=== PATIENT | male | born 1970 | race Caucasian/White ===

== ENCOUNTER 2019-11-06 11:54 | Outpatient (CLI) | payer OTHER, SELFPAY ==
[2019-11-08 03:15] LABS: COVID-19 RT-PCR Result NEGATIVE (Negative)
== END 2019-11-06 12:14 ==
PROVIDERS: PCP Nurse Practitioner; Visit Provider Nurse Practitioner Family
DX: Z11.59 Encounter for screening for other viral diseases (principal)
CPT/HCPCS: U0003

== ENCOUNTER 2019-12-26 12:53 | Outpatient (REF) | payer OTHER, SELFPAY ==
[2019-12-26 19:30] LABS: Calculated LDL 132 mg/dL (<100); Cholesterol 222 mg/dL (<200); HDL Cholesterol 54 mg/dL (40-60); Triglyceride 182 mg/dL (<150)
[2019-12-26 19:36] LABS: Hemoglobin A1C 5.5 % (<5.7)
[2019-12-28 12:14] LABS: Hepatitis C Ab w Rflx HCV PCR Negative (Negative)
== END 2019-12-26 13:13 ==
LOC: NCHCN 12:53
PROVIDERS: PCP Nurse Practitioner; Visit Provider Family Medicine
DX: Z00.00 Encounter for general adult medical examination without abnormal findings (principal); Z13.1 Encounter for screening for diabetes mellitus; Z13.220 Encounter for screening for lipoid disorders; Z11.59 Encounter for screening for other viral diseases
CPT/HCPCS: 80061; 86803; 83036

== ENCOUNTER 2020-06-26 17:43 | Outpatient (REF) | payer OTHER, SELFPAY ==
[2020-06-26 20:19] LABS: Abs Immature Grans 0.01 10^3/uL (0.0-0.06); Absolute Basophil Count 0.01 10^3/uL (0.0-0.2); Absolute Lymphocyte Count 2.02 10^3/uL (1.2-3.4); Absolute Monocyte Count 0.46 10^3/uL (0.1-0.8); Absolute Neutrophil Count 2.52 10^3/uL (1.2-6.7); Basophils % 0.2; HCT 43.8 % (40.0-50.0); HGB 14.5 g/dL (13.5-17.5); Immature Grans % 0.2; Lymphocytes % 39.5; MCH 29.7 pg (27.0-33.0); MCHC 33.1 % (32.0-36.0); MCV 89.8 fL (80-95); MPV 11.2 fL (8.0-11.0); Neutrophils % 49.1; Nucleated RBC 0 %; Platelet Count 275 10^3/uL (130-400); RBC 4.88 10^6/uL (4.36-5.78); RDW 11.9 % (11.8-14.1); RDW-SD 39.1 fL; WBC 5.12 10^3/uL (4.4-10.8)
[2020-06-26 20:38] LABS: ALT 28 U/L (16-63); AST 28 U/L (15-37); Albumin 4.3 g/dL (3.4-5.0); Alkaline Phosphatase 70 U/L (46-116); Anion Gap 11.5 mmol/L (3-11); BUN 22 mg/dL (7-18); Bilirubin, Total 0.7 mg/dL (0.2-1.0); CO2 27.5 mmol/L (21.0-32.0); Calcium 9.3 mg/dL (8.5-10.1); Chloride 104 mmol/L (98-107); Glucose 104 mg/dL (74-106); Potassium 4.2 mmol/L (3.5-5.1); Sodium 143 mmol/L (136-145); Total Protein 8.5 g/dL (6.4-8.2)
== END 2020-06-26 17:44 | disposition home or self-care (01) ==
LOC: NCHCN 17:43
PROVIDERS: PCP Nurse Practitioner; Visit Provider Family Medicine
DX: R59.1 Generalized enlarged lymph nodes (principal); J84.10 Pulmonary fibrosis, unspecified
CPT/HCPCS: 80053; 85025

== ENCOUNTER 2020-07-31 02:45 | Outpatient (CLI) | payer OTHER, SELFPAY ==
--- NOTE | 2020-07-31 14:44 | DI.RAD_ITS ---
EXAM: XR CHEST 2V PA LATERAL CLINICAL HISTORY: LYMPHADENOPATHY,R59.1. TECHNIQUE: 2D digital imaging was performed. COMPARISON: Chest x-ray February 2016 FINDINGS: Heart size is normal. The mediastinum is not widened. No new infiltrates nor pleural effusions. Calcified granuloma in the right upper lobe is unchanged f 2015. No new pulmonary nodules. IMPRESSION: No acute pulmonary findings.Stable calcified granuloma in the right upper lobe. DATA REPOSITORY: RADIATION DOSE DELIVERED:
== END 2020-07-31 03:05 ==
PROVIDERS: PCP Nurse Practitioner; Visit Provider Family Medicine
DX: R59.1 Generalized enlarged lymph nodes (principal); J98.4 Other disorders of lung
CPT/HCPCS: 71046

== ENCOUNTER 2020-11-24 16:14 | Outpatient (REF) | payer OTHER, SELFPAY ==
[2020-11-25 19:29] LABS: COVID-19 RT-PCR UVMMC Result Negative (Negative)
== END 2020-11-24 16:15 | disposition home or self-care (01) ==
LOC: LBN 16:14
PROVIDERS: PCP Family Medicine; Visit Provider Pediatrics
DX: Z20.822 Contact with and (suspected) exposure to COVID-19 (principal)
CPT/HCPCS: U0003

== ENCOUNTER 2021-01-08 17:29 | Outpatient (REF) | payer OTHER, SELFPAY | END 2021-01-08 17:30 | disposition home or self-care (01) | LOC: LBN 17:29 | PROVIDERS: PCP Family Medicine | DX: Z20.822 Contact with and (suspected) exposure to COVID-19 (principal) | CPT/HCPCS: U0003 ==

== ENCOUNTER 2021-02-24 14:53 | Outpatient (REF) | payer SELFPAY | END 2021-02-24 14:54 | disposition home or self-care (01) | LOC: LBN 14:53 | PROVIDERS: PCP Family Medicine | DX: Z20.822 Contact with and (suspected) exposure to COVID-19 (principal) | CPT/HCPCS: U0003 ==

== ENCOUNTER 2021-12-03 14:58 | Outpatient (REF) | payer OTHER, SELFPAY ==
[2021-12-05 09:47] LABS: Lyme Ab w Rflx to Lyme Confirm Negative (Negative)
[2021-12-07 22:22] LABS: Anaplasma phagocytophilum Negative (Negative); B. miyamotoi PCR Negative (Negative); Babesia divergens/MO-1 Negative (Negative); Babesia duncani Negative (Negative); Babesia microti Negative (Negative); Ehrlichia chaffeensis Negative (Negative); Ehrlichia ewingii/canis Negative (Negative); Ehrlichia muris eauclairensis Negative (Negative)
== END 2021-12-03 14:59 | disposition home or self-care (01) ==
LOC: NCHCN 14:58
PROVIDERS: PCP Family Medicine; Visit Provider Physician Assistant
DX: T14.8XXA Other injury of unspecified body region, initial encounter (principal); W57.XXXA Bitten or stung by nonvenomous insect and other nonvenomous arthropods, initial encounter
CPT/HCPCS: 87798; 86618

== ENCOUNTER 2022-06-03 01:33 | Outpatient (CLI) | payer OTHER, SELFPAY ==
--- NOTE | 2022-06-03 09:41 | DI.RAD_ITS ---
Exam(s) XR CERVICAL SPINE COMP 4-5V EXAM: XR CERVICAL SPINE COMP 4-5V CLINICAL HISTORY: CHRONIC NECK AIN, M54.2. TECHNIQUE: 2D digital imaging was performed. Five images were obtained. COMPARISON: No exams were available for comparison FINDINGS: BONES: No fracture or destructive lesion. Vertebral bodies are unremarkable. DISKS: Intervertebral disc spaces are maintained. ALIGNMENT: Cervical spinal alignment is within normal limits. The odontoid and atlantoaxial articulat ions are normal. SOFT TISSUE: Normal. The lung apices are clear. IMPRESSION: Unremarkable radiographs of the cervical spine. DATA REPOSITORY: RADIATION DOSE DELIVERED:
== END 2022-06-03 01:53 ==
PROVIDERS: PCP Family Medicine; Visit Provider Family Medicine
DX: M54.2 Cervicalgia (principal); G89.29 Other chronic pain
CPT/HCPCS: 72050

== ENCOUNTER 2023-04-27 14:09 | Outpatient (REF) | payer OTHER, SELFPAY ==
[2023-04-27 15:53] LABS: Hemoglobin A1C 5.4 % (<5.7)
[2023-04-27 17:00] LABS: Calculated LDL 115 mg/dL (<100); Cholesterol 209 mg/dL (<200); HDL Cholesterol 62 mg/dL (40-60); Triglyceride 160 mg/dL (<150)
== END 2023-04-27 14:10 | disposition home or self-care (01) ==
LOC: NCHCN 14:09
PROVIDERS: PCP Family Medicine; Visit Provider Family Medicine
DX: Z13.1 Encounter for screening for diabetes mellitus (principal); Z13.6 Encounter for screening for cardiovascular disorders
CPT/HCPCS: 80061; 83036

== ENCOUNTER 2023-06-29 08:33 | Day surgery (SDC) | payer OTHER, SELFPAY ==
[2023-06-29 08:43] VITALS: BP 139/91; PULSE 64; RESP 16; TEMP 36.4; O2SAT 100
[2023-06-29] MEDS: Lactated Ringers 1,000 ML 80 ML IV (09:19)
--- NOTE | 2023-06-29 09:27 | W.ANESPRE ---
General Info Date of Service Date Performed: 06/29/23 Height: 6 ft Weight: 80.7 kg Body Mass Index (BMI): 24.1 Surgical Procedure: Operation Date: 06/29/23 09:50 Proposed Procedure Side Surgeon p Colonoscopy Mayo Britt MD Meds Allergies and Home Medications Allergies Allergy/AdvReac Type Severity Reaction Status Date / Time amoxicillin Allergy Intermediate rash Verified 06/29/23 08:42 Penicillins AdvReac Mild Skin Rash Unverified 06/29/23 08:42 Home Medication Medication Instructions Recorded Unknown [No Known Home Meds] 02/16/16 Current Visit Medications: Current Medications Generic Name Dose Route Start Last Admin Trade Name Freq PRN Reason Stop Dose Admin Ringer's Solution 1,000 mls @ 80 mls/hr 06/29/23 06:00 06/29/23 09:19 IV 06/29/23 23:59 80 mls/hr INFUSION RAMANA Administration IV Miscellaneous Supplies 1 each 06/29/23 06:00 Iv Access IV 06/29/23 23:59 DIRECTED RAMANA Sodium Chloride 0 ml 06/29/23 06:00 Normal Saline Flush 10 Ml Syr IV 06/29/23 23:59 PRN PRN Sodium Chloride 0 ml 06/29/23 06:00 Normal Saline 10 Ml Vial IJ 06/29/23 23:59 DIRECTED PRN Sterile Water 0 ml 06/29/23 06:00 Water,Injection,Sterile 10 Ml Vial IJ 06/29/23 23:59 DIRECTED PRN PFSH Active Problems Active Problems: Problem Status Onset Code Hyperplastic colon polyp ~2018 K63.5 Cervical lymphadenopathy R59.0 Encounter for screening for other viral diseases Z11.59 Medical History Medical History IBS (irritable bowel syndrome) Migraine Eczema Surgical History Surgical History colonoscopy - MAC (10/25/17) Colonoscopy - [facility] 2008, normal, done because father with history of adenomous colon polyps Tobacco Smoking/Tobacco Use Status: Never Alcohol Alcohol Intake: current Alcohol intake frequency: holidays/special occasions only Alcohol type: beer Substance Use Substance use: Never Substance use type: does not use Vital Signs and Lab Results Vital Signs Most Recent Vital Signs in EMR: Most Recent Vital Signs Temp Pulse Resp BP Pulse Ox 36.4 C L 64 16 139/91 H 100 06/29/23 08:43 06/29/23 08:43 06/29/23 08:43 06/29/23 08:43 06/29/23 08:43 Lab Results Blood Type / Crossmatch: No Data to Display Complete Blood Count: No Data to Display Complete Metabolic Panel: No Data to Display Liver Function Panel: No Data to Display Coagulation Panel: No Data to Display Cardiac Panel: No Data to Display Arterial Blood Gas: No Data to Display Venous Blood Gas: No Data to Display Pancreas Panel: No Data to Display Thyroid Panel: No Data to Display Infectious Disease: No Data to Display Blood Cultures: No Data to Display Toxicology Panel: No Data to Display Anesthesia Assessment and Plan Anesthesia History Personal History: No History of Anesthesia Complications Family History: No Family History of Anesthesia Complications Exercise Tolerance Exercise Tolerance: Metabolic Equivalents>4 Pertinent Negatives Pertinent Negatives: No Symptoms of GERD, No Major Cardiovascular Symptoms or Complaints, No Major Pulmonary Symptoms or Complaints and No History of CVA/TIA Cardiac & Pulmonary Exam Cardiac Exam: Normal S1/S2 Heart Sounds Pulmonary Exam: Clear Bilateral Breath Sounds Implantable Cardiac Device Does patient have a Pacemaker or an ICD?: No Airway Exam Known Difficult Airway: No Mallampati Class: 1 Mouth Opening: Normal (> 3cm) Thyromental Distance: Greater than 3 cm Neck Range of Motion: Full ROM Neck Circumference: Normal Teeth Condition: Normal Dentition ASA Classification ASA Score: ASA 2 Emergency Case?: No NPO Status NPO Status: NPO Clears >2 hours, Solids >8 hours Anesthesia Plan Resuscitation Status: Full Code Anesthesia Technique: General Anesthesia Airway Planned: Natural Airway Monitors Used: Standard Monitors
[2023-06-29 09:50] VITALS: BMI 24.1
--- NOTE | 2023-06-29 10:34 | BOWEL_PTH ---
PATIENT: Chu Pedersen LOC: [facility] U#:[id number] AGE/SX: 52/M ROOM: RE06/29/[address]: Mayo Britt : 1970 BED: DIS: 06/29/2023 SPEC #: [id number] RECD: 06/29/23 12:43 STATUS: SULAIMAN REQ #: [id number] PAOLA: 06/29/23 10:[address]: Mayo Britt DEPT: Surgical Specimen RECD BY: Emy Hernandez ENTERED: 06/29/23 12:45 SP TYPE: Bowel OTHR DR: Viraj Campos Tissues: 1 - BIOPSY BOWEL Procedures: GROSS AND MICRO LEVEL 4 Comments: [id number]
[2023-06-29 10:50] VITALS: BP 108/66; PULSE 85; RESP 16; TEMP 36.2; O2SAT 98
--- NOTE | 2023-06-29 10:50 | W.COLOREPORT ---
Date of service: 06/29/23 Time of Service: 10:50 Colonoscopy Report Procedure Description: PROCEDURES PERFORMED: 1. Colonoscopy with cold forceps polypectomy PREOPERATIVE DIAGNOSIS: Surveillance colonoscopy POSTOPERATIVE DIAGNOSIS: Sigmoid colon polyp SURGEON: Ramon Britt MD INDICATION FOR PROCEDURE: the patient is a 52-year-old man with a family history of multiple advanced colorectal polyps in his father as well as his sister. Multiple paternal cousins have had colon cancer. He has no symptoms. FINDINGS: Normal terminal ileum. No diverticular disease. No inflammation anywhere. A small 2-3 mm sessile polyp was removed from the sigmoid colon. Unclear if it is adenomatous or hyperplastic based off of visual appearance. No hemorrhoid disease. SURVEILLANCE interval/FOLLOW-UP: Considering the family history described, I think continuing the 5-year surveillance interval makes sense. SPECIMENS: Yes EBL: Minimal COMPLICATIONS: None QUALITY of prep: Excellent Procedure in detail: The patient gave written consent and was in agreement with the indications, the potential risks as well as the benefits of the procedure. They were taken to the endoscopy suite and laid in the left lateral decubitus position. A timeout was performed and anesthesia was administered which was tolerated well. I started the procedure. Digital rectal and visual examination was performed and grossly within normal limits. A well-lubricated flexible colonoscope was then introduced and passed without any notable difficulty all the way to the cecum identified by the ileocecal valve and the appendiceal orifice. The terminal ileum was intubated and looked normal. The scope was then slowly withdrawn with the above-noted findings. The patient tolerated the procedure well and was taken to the PACU in hemodynamically stable condition.
--- NOTE | 2023-06-29 10:52 | W.PM.DSUDISC ---
Date of service: 06/29/23 Time of Service: 10:52 Discharge Plan Disposition Patient Disposition: Home Condition: Good Discharge Details Attending Provider: Mayo Britt Primary Care Provider: Viraj Campos Home Meds and New Rx's Prescriptions: No Action No Known Home Meds Discharge Instructions Additional Instructions: FINDINGS: A very small polyp was found and removed from your sigmoid colon. This may or may not be the type of polyp that has risk and it will get analyzed. No matter what kind of polyp it ends up being I would recommend repeating a colonoscopy in 5 years like you have been doing because of the extensive family history that you describe. I think current guidelines from most societies would support this recommendation considering your family history. There are no other disease processes seen or uncovered. The last part of your small intestine (terminal ileum) looks completely normal. There is no diverticular disease anywhere. Nowhere in the colon or the rectum was there any inflammation. There was no hemorrhoid disease. Stand Alone Forms: Colonoscopy Post Instructions Activity:: Activity as Tolerated Diet:: As Tolerated
[2023-06-29 11:20] VITALS: BP 127/92; PULSE 60; RESP 16; TEMP 36.3; O2SAT 100
--- NOTE | 2023-06-29 11:39 | W.ANESPOSTOP ---
Postoperative Evaluation Date, Time and Location Date Performed: 06/29/23 Time Performed: 10:52 Patient Location: Day Surgery Unit Vital Signs Most Recent Imported Vital Signs: Most Recent Vital Signs Temp Pulse Resp BP Pulse Ox 36.3 C L 60 16 127/92 H 100 06/29/23 11:20 06/29/23 11:20 06/29/23 11:20 06/29/23 11:20 06/29/23 11:20 Pain Score Most Recent Pain Score: Most Recent Pain Score Pain Level 0 06/29/23 11:20 Assessment Mental Status: Awake (Alert & Oriented to Patient Baseline) Airway and Respiratory Function: Patent airway with normal (patient baseline) respiratory exam Cardiovascular Function: Hemodynamically Stable Hydration Status: Adequately Hydrated Nausea & Vomiting: No Nausea or Vomiting Pain: Pt. Denies Any Pain Peripheral Nerve Block: Patient did not receive a nerve block
== END 2023-06-29 11:30 | disposition home or self-care (01) ==
PROVIDERS: PCP Family Medicine; Visit Provider Student in an Organized Health Care Education/Training Program
PROC: 0DJD8ZZ Inspection of Lower Intestinal Tract, Via Natural or Artificial Opening Endoscopic (ICD-10-PCS; CPT 45378; principal; 2023-06-29 09:45)
DX: Z12.11 Encounter for screening for malignant neoplasm of colon (principal); K63.5 Polyp of colon; Z86.010 Personal history of colon polyps; Z80.0 Family history of malignant neoplasm of digestive organs; K63.89 Other specified diseases of intestine
CPT/HCPCS: 45380; 00123; 88305; J2001; J2704

== ENCOUNTER 2024-03-11 13:47 | Emergency (ER) | payer OTHER, SELFPAY ==
[2024-03-11 13:53] VITALS: BP 163/98; PULSE 73; RESP 16; O2SAT 99
--- NOTE | 2024-03-11 14:00 | DI.RAD_ITS ---
Exam(s) XR ANKLE RT COMPLETE EXAM: XR ANKLE RT COMPLETE CLINICAL HISTORY: lateral ankle pain s/p fall while skiing. TECHNIQUE: 2D digital imaging was performed. Three views. COMPARISON: No exams were available for comparison FINDINGS: BONES: Nondisplaced fracture noted through the tip of the lateral malleolus. Question of additional nondisplaced fracture the the tip of the medial malleolus. The talar dome appears intact. No bony d estructive lesion is seen. Minimal plantar calcaneal spur. Ossicle adjacent to cuboid. JOINTS: The ankle mortise is normally aligned. No significant degenerative changes. SOFT TISSUE: Normal. IMPRESSION: Nondisplaced fractures at the tips of the lateral and medial malleoli. DATA REPOSITORY: RADIATION DOSE DELIVERED:
--- NOTE | 2024-03-11 14:03 | ED.GENADUL_ITS ---
Discharge Plan Disposition Patient Disposition: Home Condition: Stable Discharge Details Chief Complaint: Orthopedic Clinical Impression: Right ankle sprain Primary Care Provider: Kg Miller ED Provider: Zev Garcia Home Meds and New Rx's Prescriptions: No Action No Known Home Meds Discharge Instructions Additional Instructions: You possibly have a nondisplaced distal fibula fracture which is treated the same as an ankle sprain. I we will call you with a radiologist report once it is back If you are not improving in a week I would recommend following up with either orthopedics or your primary care provider While you are sitting or laying down to keep it elevated can help with swelling. If you feel more ill or have severe worsening pain return to the emergency department for reevaluation HPI General Mode of arrival: ambulatory . Date/Time Provider Initiated Documentation: 03/11/24 13:57 . Limitations to Documentation: no limitations . Information obtained by: patient . History of Present Illness 53 year old M presents to the emergency department with the chief complaint of right ankle pain s/p fall skiing, described as moderate, Quality is described as aching, and is localized to the right and lower extremity. Patient reports no radiation. Patient started experiencing this hour(s) (1) and it has been constant. Other factors that worsen symptoms (palpitation) . Patient notes no other symptoms.. Patient did receive the following treatments prior to arrival, NSAID Related Data Home Medications ?Medication ?Instructions ?Recorded ?Confirmed Unknown [No Known Home Meds] 02/16/16 03/11/24 Allergies Allergy/AdvReac Type Severity Reaction Status Date / Time amoxicillin Allergy Intermediate rash Verified 03/11/24 13:56 Penicillins AdvReac Mild Skin Rash Unverified 03/11/24 13:56 General Stated Complaint: Orthopedic HEMAL: 3 Review of Systems All systems reviewed & are unremarkable except as noted in HPI and below Constitutional Constitutional: Denies weakness Cardiovascular Cardiovascular: Denies chest pain Neurologic Neurologic: Denies weakness Exam Const General: no acute distress Orientation: alert HENNH Head: normal to inspection Ears: external ears normal General nose exam: external nose normal Mouth: moist mucous membranes Eyes General: appearance normal, both eyes and all related structures Neck Neck: normal visual inspection Resp Effort & Inspection: normal respiratory effort and able to speak in complete sentences Cardio Rate: regular rate Neuro General: patient alert and patient oriented x3 Extrem General: capillary refill normal Psych Mental Status: mental status grossly normal Course Vital Signs Vital signs: Vital Signs Pulse 73 03/11/24 13:53 Respiratory Rate 16 03/11/24 13:53 Blood Pressure 163/98 H 03/11/24 13:53 Pulse Oximetry 99 03/11/24 13:53 Pulse 73 03/11/24 13:53 Respiratory Rate 16 03/11/24 13:53 Respiratory Effort Normal, Non-Labored 03/11/24 13:56 Blood Pressure 163/98 H 03/11/24 13:53 Blood Pressure Position Sitting 03/11/24 13:53 Pulse Oximetry 99 03/11/24 13:53 Oxygen Delivery Method Room Air 03/11/24 13:53 Oxygen Flow Rate 0 03/11/24 13:53 Medical Decision Making 53-year-old male who has no significant past medical history comes in with right ankle pain. He says he was skiing when he lost control and fell, and heard a pop in his right lateral ankle. He denies any headaches, neck pain, chest or abdomen pain. He only has tenderness in the right lateral malleolus. He is tender in this area without palpable deformity, he has no posterior ankle tenderness, no medial tenderness or anterior tenderness, no tenderness in the foot. Limited range of motion of the ankle due to pain. He has intact sensation and cap refill. No tenderness of the medial or proximal or mid tib- fib. He has intact plantarflexion when the calf is squeezed. Suspect sprain versus fracture, will obtain x-rays. Patient stable, x-ray on my read shows a question of a nondisplaced distal fibula fracture. Patient stable, will provide a walking boot and he already has crutches at home. He will follow-up with his PCP if not improving in a week and return precautions given. I will call him if he read sees anything of note. Differential Diagnosis Differential Diagnosis: fracture, sprain Quality:SDOH Health Related Social Needs: No Data to Display PFSH All Active Problems (Updated 03/11/24 @ 14:43 by Zev Garcia MD) Right ankle sprain (Acute) Abnormal tympanic membrane of right ear (Acute) Hyperplastic colon polyp (Acute ~2018) Cervical lymphadenopathy (Acute) Encounter for screening for other viral diseases (Acute) Medical History IBS (irritable bowel syndrome) Migraine Eczema Surgical History History of colonoscopy (~06/2023) path sent colonoscopy - MAC (10/25/17) Colonoscopy - MAC 2008, normal, done because father with history of adenomous colon polyps Family History Other Adenomatous colon polyp Colon cancer Hiatal hernia Social History Smoking/Tobacco Use Status: Never Smoking risk assessment performed?: Yes Alcohol Intake: current Alcohol Intake frequency: holidays/special occasions only Alcohol type: beer Drug use: Never Substance use type: does not use Housing: house Do you feel safe in your relationship?: Yes PAWSS Have you Been Recently Intoxicated or Drunk Within the Last 30 days?: No Have you Ever Experienced Previous Episodes of Alcohol Withdrawal?: No Have you ever Experienced Withdrawal Seizures?: No Have you ever Experienced Delirium Tremens(DT)s?: No Have you ever undergone Alcohol Rehabilitation Treatment (i.e, inpt ot outpatient treatment programs)?: No Have you ever Experienced Blackouts?: No Have you ever Combined Alcohol with other Downers within the last 90 days?: No Have you ever Combined Alcohol with any other Substance of Abuse during the last 90 days?: No Positive Blood Alcohol level on Presentation? [PCS.BAL]: No Evidence of Increased Autonomic Activity (i.e. HR>120, tremor, sweating, agitation, nausea)?: No Result: 0
--- NOTE | 2024-03-11 15:20 | DI.VRAD_ITS ---
PROCEDURE INFORMATION: Exam: XR Right Ankle Exam date and time: 03/11/2024 2:19 PM Age: 53 years old Clinical indication: Injury or trauma; Other: Lateral ankle pain S/P fall while skiing; Blunt trauma; Right TECHNIQUE: Imaging protocol: Radiologic exam of the right ankle. Views: 3 or more views. COMPARISON: No relevant prior studies available. FINDINGS: Bones/joints: Cortical irregularity of the lateral malleolus. Ankle mortise is congruent. No dislocation. Small calcaneal spur. Soft tissues: Mild ankle swelling. IMPRESSION: Acute avulsion fracture of the lateral malleolus. Dictated and Authenticated by: Luis Antonio Beltran MD. Ordering:JIM Brothers MD
== END 2024-03-11 14:55 | disposition home or self-care (01) ==
PROVIDERS: Emergency Provider Emergency Medicine; PCP Student in an Organized Health Care Education/Training Program
DX: S82.844A Nondisplaced bimalleolar fracture of right lower leg, initial encounter for closed fracture (principal); M77.31 Calcaneal spur, right foot; X50.1XXA Overexertion from prolonged static or awkward postures, initial encounter; Y93.23 Activity, snow (alpine) (downhill) skiing, snowboarding, sledding, tobogganing and snow tubing; Y92.838 Other recreation area as the place of occurrence of the external cause
CPT/HCPCS: 99283; 73610

== ENCOUNTER 2024-08-22 08:16 | Outpatient (CLI) | payer OTHER, SELFPAY ==
--- NOTE | 2024-08-22 08:00 | DI.RAD_ITS ---
Exam(s) XR ANKLE RT COMPLETE EXAM: XR ANKLE RT COMPLETE CLINICAL HISTORY: F/U FRACTURE. TECHNIQUE: 2D digital imaging was performed of the right ankle. Four images were obtained. AP, lat eral and oblique views were obtained. COMPARISON: CR,XR XR ANKLE RT COMPLETE from 03/11/2024 FINDINGS: BONES: No acute fracture is present. No bony destructive lesion is seen. The fractures previously se en at the tips of both the medial lateral malleoli have healed. JOINTS: The ankle mortise is normally aligned. SOFT TISSUE: Normal. IMPRESSION: There has been interval healing of the medial lateral malleoli fractures. DATA REPOSITORY: RADIATION DOSE DELIVERED:
== END 2024-08-22 08:17 | disposition home or self-care (01) ==
LOC: DIORS 08:16
PROVIDERS: PCP Student in an Organized Health Care Education/Training Program; Referring Provider Student in an Organized Health Care Education/Training Program; Visit Provider Student in an Organized Health Care Education/Training Program
DX: S82.891A Other fracture of right lower leg, initial encounter for closed fracture (principal); X50.0XXA Overexertion from strenuous movement or load, initial encounter; Y93.23 Activity, snow (alpine) (downhill) skiing, snowboarding, sledding, tobogganing and snow tubing
CPT/HCPCS: 73610